=== PATIENT | female | born 1960 | race African-American/Black ===

== ENCOUNTER 2024-09-26 06:16 | Observation (INO) | payer OTHER ==
[2024-09-23 11:04] LABS: BASOPHILS % 0.5 % (0.0-1.0); EOSINOPHILS % 0.8 % (0.0-6.0); LYMPHOCYTES % 40.1 % (18.0-39.1); MONOCYTES % 7.7 % (4.4-11.3); NEUTROPHILS % 50.6 % (38.7-80.0); RED CELL DISTRIBUTION WIDTH 14.2 % (11.7-14.4)
[~2024-09-26] VITALS: Ht 162.6 cm; Wt 102.5 kg
[~2024-09-26 06:16] MED LIST: ATORVASTATIN CA20 MG PO; ELIQUIS5 MG PO; LOSARTAN-HCTZ1 EAC1 PO; METFORMIN HCL500 MG PO; NEURONTIN300 MG PO
[2024-09-26] MEDS ORDERED: CEFAZOLIN SODIUM 2 GM ONE (06:54)
[2024-09-26] MEDS ORDERED: LACTATED RINGER'S 1,000 ML ONE (06:54)
[2024-09-26] MEDS ORDERED: DOCUSATE SODIUM 100 MG CAP PO PRN ×2 (07:00→16:30)
[2024-09-26] MEDS ORDERED: ONDANSETRON HCL INJ 2MG/ML 2ML 2 MG/ML VIAL IV PRN (07:00)
[2024-09-26] MEDS ORDERED: FENTANYL CITRATE/PF 100MCG/2 ML INJ ONE ×3 (07:08→09:40)
[2024-09-26] MEDS ORDERED: LIDOCAINE HCL 2% LOCAL INJ 5 ML SDV VIAL INJ ONE (07:08)
[2024-09-26] MEDS ORDERED: SUCCINYLCHOLINE CHLORIDE 20 MG/ML 10ML VIAL ONE (07:08)
[2024-09-26] MEDS ORDERED: ROCURONIUM BROMIDE 1 ML IV ONE (07:08)
[2024-09-26] MEDS ORDERED: SEVOFLURANE INHAL SOLN 250 ML PEN BTL ONE (07:08)
[2024-09-26] MEDS ORDERED: PROPOFOL IV EMULSION 10 MG/ML 20 ML VIAL ONE (07:08)
[2024-09-26] MEDS ORDERED: MIDAZOLAM HCL 2 MG/2 ML VIAL ONE (07:08)
[2024-09-26] MEDS ORDERED: ROPIVACAINE/EPI/CLONIDINE/KET 50 ML SYRINGE INJ ONE (08:00)
[2024-09-26 08:10] LABS: EST GLOMERULAR FILTRATION RATE 67.0 ML/MIN (>=60)
[2024-09-26] MEDS ORDERED: DEXAMETHASONE SOD PHOS INJ 4 MG/ML SDV ONE (08:45)
[2024-09-26] MEDS ORDERED: FAMOTIDINE 20 MG/2 ML VIAL IV ONE (08:45)
[2024-09-26] MEDS ORDERED: ACETAMINOPHEN 1000 MG/100 ML 100 ML IV ONE (08:45)
[2024-09-26] MEDS ORDERED: ONDANSETRON HCL INJ 2MG/ML 2ML 2 MG/ML VIAL ONE (08:45)
[2024-09-26] MEDS ORDERED: METOCLOPRAMIDE HCL 10 MG/2ML VIAL ONE (08:45)
[2024-09-26] MEDS ORDERED: SUGAMMADEX SODIUM 200 MG/2 ML VIAL IV ONE (09:50)
[2024-09-26] MEDS ORDERED: GLYCOPYRROLATE INJ 0.2 MG/ML VIAL ONE (09:51)
[2024-09-26] MEDS: HYDROCODONE/APAP 7.5MG-325MG 1 EA TAB ONE (12:52)
[2024-09-26] MEDS: ONDANSETRON HCL INJ 2MG/ML 2ML 2 MG/ML VIAL ONE (13:05)
[2024-09-26] MEDS ORDERED: CEFAZOLIN SODIUM 2 GM in SODIUM CHLORIDE 0.9% 100 ML IV SCH (15:30)
[2024-09-26] MEDS ORDERED: DEXTROSE 50% SYRINGE 50 ML IV PRN ×2 (16:30→16:45)
[2024-09-26] MEDS ORDERED: ALBUTEROL/IPRATROPIUM 3 ML NEB NEB PRN (16:30)
[2024-09-26] MEDS ORDERED: LIDOCAINE 4% PATCH TP PRN (16:30)
[2024-09-26] MEDS ORDERED: ACETAMINOPHEN 325 MG TAB PO PRN (16:30)
[2024-09-26] MEDS ORDERED: BENZONATATE 100 MG CAP PO PRN (16:30)
[2024-09-26] MEDS ORDERED: DIPHENHYDRAMINE HCL 25 MG CAP PO PRN (16:30)
[2024-09-26] MEDS ORDERED: HYDRALAZINE HCL 20 MG/ML VIAL IV PRN (16:30)
[2024-09-26] MEDS ORDERED: SIMETHICONE 80 MG CHEW PO PRN (16:30)
[2024-09-26] MEDS ORDERED: POTASSIUM CHLORIDE 20 MEQ TAB CR PO PRN (16:30)
[2024-09-26] MEDS: CEFAZOLIN SODIUM 2 GM in SODIUM CHLORIDE 0.9% 100 ML IV SCH (17:04)
[2024-09-26] MEDS: HYDROCODONE/APAP 7.5MG-325MG 1 EA TAB PO PRN (17:05)
[2024-09-26 17:30] VITALS: BP 146/72; PULSE 88; RESP 17; TEMP 98.9; O2SAT 100
[2024-09-26 18:00] VITALS: BP 146/72; PULSE 88; RESP 17; TEMP 98.9; O2SAT 100
[2024-09-26] MEDS: SODIUM CHLORIDE 0.9% 100 ML ONE (18:09)
[2024-09-26] MEDS: CEFAZOLIN SODIUM 2 GM ONE (18:09)
[2024-09-26 20:35] VITALS: BP 130/62; PULSE 88; RESP 18; TEMP 99.4; O2SAT 99
[2024-09-26] MEDS: APIXABAN 5 MG TABLET PO SCH (21:09)
[2024-09-26] MEDS: CELECOXIB 200 MG CAP PO SCH (21:09)
[2024-09-26] MEDS: INSULIN LISPRO 100 UNIT/1 ML 3ML VIAL SQ SCH (21:15)
[2024-09-26 22:34] VITALS: BP 130/62; PULSE 88; RESP 18; TEMP 99.4; O2SAT 99
[2024-09-27] VITALS (8 sets, daily range): BP systolic 105–128; BP diastolic 53–65; PULSE 67–93; RESP 16–18; TEMP 98.5–99.2; O2SAT 97–100
[2024-09-27] MEDS: MELATONIN 5 MG TABLET PO PRN (00:37)
[2024-09-27] MEDS: HYDROCODONE/APAP 7.5MG-325MG 1 EA TAB ONE (02:40)
[2024-09-27 07:21] LABS: BASOPHILS % 0.2 % (0.0-1.0); EOSINOPHILS % 0.0 % (0.0-6.0); LYMPHOCYTES % 20.1 % (18.0-39.1); MONOCYTES % 10.6 % (4.4-11.3); NEUTROPHILS % 68.7 % (38.7-80.0); RED CELL DISTRIBUTION WIDTH 14.2 % (11.7-14.4)
[2024-09-27 07:34] LABS: EST GLOMERULAR FILTRATION RATE 79.0 ML/MIN (>=60)
[2024-09-27] MEDS: PANTOPRAZOLE SOD 40 MG TABEC PO SCH (09:09)
[2024-09-27] MEDS: KETOROLAC TROMETHAMINE 30 MG/ML VIAL IV PRN (12:07)
== END 2024-09-27 14:00 | disposition home health service (06) ==
LOC: OR 06:16 → PACU V 15:06 → MED/SURG3 17:23
PROVIDERS: ADMIT Orthopaedic Surgery Adult Reconstructive Orthopaedic Surgery; ATTEND Orthopaedic Surgery Adult Reconstructive Orthopaedic Surgery
DX: M16.11 Unilateral primary osteoarthritis, right hip (principal); E11.40 Type 2 diabetes mellitus with diabetic neuropathy, unspecified; I10 Essential (primary) hypertension; G89.4 Chronic pain syndrome; Z79.84 Long term (current) use of oral hypoglycemic drugs; Z79.01 Long term (current) use of anticoagulants; E66.01 Morbid (severe) obesity due to excess calories; Z01.812 Encounter for preprocedural laboratory examination; Z01.818 Encounter for other preprocedural examination
CPT/HCPCS: 36415; 71046; 72170; 80048; 82948; 85025; 86850; 86900; 94799; C1713; C1776; G0378; J0330; J1100; J1308; J1885; J2003; J2250; J2405; J2470; J2765; J7050

== ENCOUNTER 2024-10-03 14:06 | Outpatient (RCR) | payer OTHER | END 2024-10-17 | LOC: PT 14:06 | PROVIDERS: ATTEND Orthopaedic Surgery Adult Reconstructive Orthopaedic Surgery | DX: M25.551 Pain in right hip (principal); M16.11 Unilateral primary osteoarthritis, right hip ==